=== PATIENT | male | born 1975 | race Caucasian/White ===

== ENCOUNTER 2024-05-06 19:31 | Emergency (ER) | payer SELFPAY ==
[2024-05-06] MEDS: Proparacaine 0.5% Ophth Soln 15 ML Bottle EYERT STA (22:58)
[2024-05-06] MEDS: Acetaminophen 500 MG Tab PO ONE (22:59)
[2024-05-06] MEDS: Ibuprofen 600 MG Tab PO ONE (23:00)
[2024-05-06] MEDS: Fluorescein 1 MG Ophth Strip EYERT ONE (23:01)
[2024-05-07] MEDS: Erythromycin Base 0.5% Ophth Oint 1 GM Tube EYEBOTH ONE (02:45)
[2024-05-07] MEDS: Bacitracin Oint 1 GM U/D Packet TOP ONE (02:45)
== END 2024-05-07 03:13 | disposition home or self-care (01) ==
LOC: MW.ED 19:31
DX: S05.01XA Injury of conjunctiva and corneal abrasion without foreign body, right eye, initial encounter (principal); F17.210 Nicotine dependence, cigarettes, uncomplicated; X58.XXXA Exposure to other specified factors, initial encounter; Y93.89 Activity, other specified; Y99.0 Civilian activity done for income or pay
CPT/HCPCS: 99283; A9270; 99282; J3490